=== PATIENT | female | born 1985 | race American Indian/Alaskan Native ===

== ENCOUNTER 2017-12-16 17:22 | Outpatient (CLI) | payer MEDICAID ==
[2017-12-16 17:56] VITALS: BP 109/81
[2017-12-16] MEDS ORDERED: LACTATED RINGERS 500 ML IV ONE (18:00)
[2017-12-16 19:29] LABS: Bacteria,Urine 1+ /HPF (Negative); Bilirubin,Urine NEG (Negative); Blood,Urine NEG (Negative); Color,Urine Yellow (Yellow); Hyaline Casts,Urine 8 /LPF; Mucus,Urine FEW /HPF; Urobilinogen,Urine < 2.0 mg/dL (<2.0)
== END 2017-12-16 19:54 | disposition home or self-care (01) ==
LOC: TRG 17:22
PROVIDERS: ATTEND Obstetrics & Gynecology
DX: O47.03 False labor before 37 completed weeks of gestation, third trimester (principal); Z3A.33 33 weeks gestation of pregnancy
CPT/HCPCS: 59025; 81001

== ENCOUNTER 2018-01-28 11:30 | Outpatient (CLI) | payer MEDICAID ==
[2018-01-28 13:59] VITALS: BP 107/68
--- NOTE | 2018-01-28 16:13 | Ultrasound Report ---
LIMITED OB ULTRASOUND: well-being, MATTHEW. Gestation: [place] MATTHEW = 19.2 cm Heart Rate: 25 BPM Estimated gestational age is 39 weeks 4 days. BIOPHYSICAL PROFILE: 2 - breathing movements 2 - movements 2 - posture and tone 2 - Qualitative amniotic fluid volume 8 - TOTAL SCORE OF POSSIBLE 8 Heart Rate (bpm) 125
== END 2018-01-28 14:36 | disposition home or self-care (01) ==
LOC: TRG 11:30
PROVIDERS: ATTEND Obstetrics & Gynecology
DX: O47.1 False labor at or after 37 completed weeks of gestation (principal); Z3A.39 39 weeks gestation of pregnancy
CPT/HCPCS: 59025; 76815; 76819

== ENCOUNTER 2018-02-04 12:03 | Inpatient (IN) | payer MEDICAID ==
[~2018-02-04 12:03] MED LIST: NACL 0.9% IR ONE; WATER FOR IRRIG STERILE IR ONE
[2018-02-04] MEDS ORDERED: BRETHINE SUB-Q PRN (15:06)
[2018-02-04] MEDS ORDERED: BRETHINE IVP PRN (15:06)
[2018-02-04] MEDS ORDERED: PHENERGAN PO PRN ×2 (15:06→23:26)
[2018-02-04] MEDS ORDERED: NARCAN 0.4 MG/1 ML IV PRN ×2 (15:06→23:26)
[2018-02-04] MEDS ORDERED: MINERAL OIL PO PRN (15:06)
[2018-02-04] MEDS ORDERED: SUBLIMAZE IV PRN (15:06)
[2018-02-04] MEDS ORDERED: STADOL IV PRN (15:06)
[2018-02-04] MEDS ORDERED: ePHEDrine SULFATE IV PRN (15:06)
[2018-02-04] MEDS ORDERED: ZOFRAN IV PRN ×2 (15:06→23:26)
--- NOTE | 2018-02-04 15:13 | History and Physical Report ---
History of Present Illness Date of examination: 02/04/18 Date of admission: 02/04/18 14:43 Chief complaint: Induction of labor History of present illness: Pt is a 32yo BF EDC 01/31/18; EGA 40 4/7 weeks presents to L&D complaining of decreased movement. She had a NR-NST, and BPP was 6/8. She will therefore be admitted for induction of labor. She received care at [facility] since27 weeks and course has been unremarkable. records are available and GBS is Positive. Past History Past Medical History: hematologic disorders (Protein S Deficiency) Past Surgical History: no surgical history Family/Genetic History: none Social history: no significant social history - Obstetrical History Expected Date of Delivery: 01/31/18 Actual Gestation: 40 Week(s) 4 Day(s) : 5 Medications and Allergies Allergies Allergy/AdvReac Type Severity Reaction Status Date / Time No Known Allergies Allergy Verified 02/04/18 13:28 Home Medications Medication Instructions Recorded Confirmed Last Taken Type No Known Home Medications [No 12/16/17 02/04/18 Unknown History Reported Home Medications] Active Meds: Active Medications Butorphanol Tartrate (Stadol) 2 mg IV Q2H PRN PRN Reason: Pain , Severe (7-10) Dinoprostone (Cervidil) 10 mg VG ONCE ONE Stop: 02/04/18 15:07 Ephedrine Sulfate (Ephedrine Sulfate) 10 mg IV Q2M PRN PRN Reason: Hypotension Fentanyl (Sublimaze) 100 mcg IV Q2H PRN PRN Reason: Labor Pain Ampicillin Sodium (Ampicillin/Ns 1 Gm/50 Ml) 1 gm in 50 mls @ 100 mls/hr IV Q4HR GILDA; Protocol Ampicillin Sodium (Polycillin/Ns 2 Gm/100 Ml) 2 gm in 100 mls @ 100 mls/hr IV ONCE ONE; Protocol Stop: 02/04/18 16:05 Lactated Ringer's (Lactated Ringers) 1,000 mls @ 125 mls/hr IV DIRECT GILDA Lidocaine (Xylocaine 2%) 20 ml INFILTRATI ONCE ONE Stop: 02/04/18 15:07 Mineral Oil (Mineral Oil) 30 ml PO QHS PRN PRN Reason: Constipation Review of Systems All systems: negative - Vital Signs Vital signs: Vital Signs Pulse BP 90 117/70 02/04/18 12:31 02/04/18 12:31 Temp Pulse Resp BP Pulse Ox 99.0 F 90 20 117/70 02/04/18 13:32 02/04/18 13:32 02/04/18 13:32 02/04/18 12:31 - Physical Exam Breasts: Positive: deferred Cardiovascular: Regular rate Lungs: Positive: Clear to auscultation Abdomen: Positive: normal appearance Genitourinary (Female): Positive: normal external genitalia Uterus: Positive: enlarged Extremities: Positive: normal - Obstetrical FHR: category 1 Uterine Contraction Monitor Mode: External Cervical Dilatation: 1 Cervical Effacement Percentage: 20 station: -3 Uterine Contraction Pattern: Absent Results Result Diagrams: 02/04/18 15:11 All other labs normal. Assessment and Plan - Patient Problems (1) 40 weeks gestation of Onset Date: 02/04/18 Current Visit: Yes Status: Acute Plan to address problem: A: IUP @ 40 4/7 weeks BPP 6/8 History of demise History of Protein S Deficiency P: Admit to L&D for cervidil/pitocin induction of labor
--- NOTE | 2018-02-04 15:20 | Ultrasound Report ---
ULTRASOUND BIOPHYSICAL PROFILE: History: Nonreactive stress test Technique: Transabdominal ultrasound with Doppler interrogation. 2 - breathing movements 0 - movements 2 - posture and tone 2 - Qualitative amniotic fluid volume 6 - TOTAL SCORE OF POSSIBLE 8 Heart Rate (bpm) 132
--- NOTE | 2018-02-04 15:20 | Ultrasound Report ---
ULTRASOUND OB LIMITED History: MATTHEW Technique: Transabdominal ultrasound with Doppler interrogation. Gestation: Single Position: Cephalic Amniotic Fluid: Normal MATTHEW = 12.7 cm Heart Rate: 134 BPM
[2018-02-04] MEDS ORDERED: PITOCin/NS 20 UNIT/1000ML DRIP 20 UNITS/1,000 ML BAG IV SCH (16:00)
[2018-02-04] MEDS ORDERED: LACTATED RINGERS 1,000 ML IV SCH (16:00)
[2018-02-04] MEDS ORDERED: PITOCin/NS 30 UNIT/500ML 30 UNITS/500 ML BAG IV SCH (16:00)
[2018-02-04] MEDS ORDERED: CERVIDIL VG ONE (16:00)
[2018-02-04] MEDS ORDERED: XYLOCAINE 2% INFILTRATI ONE (16:00)
[2018-02-04] MEDS ORDERED: POLYCILLIN/NS 2 GM/100 ML 2 GM/100 ML BAG IV ONE (16:00)
[2018-02-04 16:03] LABS: Hematocrit 32.8 % (30.3-42.9); Hemoglobin 10.5 gm/dl (10.1-14.3); Mean Corpuscular HGB Conc 32 % (30-34); Mean Corpuscular Volume 81 fl (79-97); Platelet Count 301 K/mm3 (140-440); Red Blood Count 4.06 M/mm3 (3.65-5.03); Red Cell Distribution Width 17.3 % (13.2-15.2)
[2018-02-04 16:06] LABS: Mean Corpuscular Hemoglobin 26 pg (28-32)
[2018-02-04] MEDS ORDERED: AMPICILLIN/NS 1 GM/50 ML 1 GM/50 ML BAG IV SCH (19:08)
--- NOTE | 2018-02-04 23:04 | Event Note ---
Date: 02/04/18 FHR baseline 120-125 with minimal variability and occasional variable FHR decelerations with rapid return to baseline. Patient is having labor induced due to nonreactive NST, BPP 6/8, and decreased movement. Pt. has a history of demise with a previous . Cervix is unchanged; patient has been receiving low dose Pitocin but was unable to increase Pitocin as planned due to minimal variability. Position changes have been instituted, IV fluid bolus has been given, and oxygen has been applied per face mask but without change in variability. Pitocin turned off and improvement of variability noted (moderate variability after Pitocin turned off). Consulted with Dr. Hernandez regarding interventions taken and heart rate tracing. Dr. Hernandez is en route to see patient. Discussed options with patient. Patient states she would like to have a section.
[2018-02-04] MEDS ORDERED: PEPCID IV NR (23:15)
[2018-02-04] MEDS ORDERED: BICITRA ONE (23:15)
[2018-02-04] MEDS ORDERED: REGLAN ONE (23:15)
[2018-02-04] MEDS ORDERED: BICITRA PO ONE (23:15)
[2018-02-04] MEDS ORDERED: REGLAN IV NR (23:15)
[2018-02-04] MEDS ORDERED: PEPCID IV ONE (23:16)
[2018-02-04] MEDS ORDERED: PHENERGAN PR PRN (23:26)
--- NOTE | 2018-02-04 23:26 | Anesthesia Consultation ---
Anesthesia Consult and Med Hx Date of service: 02/04/18 - Airway Anesthetic Teeth Evaluation: Good ROM Head & Neck: Adequate Mental/Hyoid Distance: Adequate Intubation Access Assessment: Probably Good - Pulmonary Exam CTA: Yes - Cardiac Exam Cardiac Exam: RRR - Pre-Operative Health Status ASA Pre-Surgery Classification: ASA3 Proposed Anesthetic Plan: Epidural, Spinal - Pulmonary Hx Asthma: No COPD: No Hx Pneumonia: No - Cardiovascular System Hx Hypertension: No - Central Nervous System Hx Seizures: No Hx Psychiatric Problems: No - Endocrine Hx Renal Disease: No Hx End Stage Renal Disease: No Hx Hypothyroidism: No Hx Hyperthyroidism: No - Hematic Hx Anemia: No Hx Sickle Cell Disease: No - Other Systems Hx Alcohol Use: No Hx Obesity: Yes
--- NOTE | 2018-02-04 23:26 | Anesthesia Day of Surgery ---
Anesthesia Day of Surgery - Day of Surgery Patient Examined: Yes Patient H&P Reviewed: Yes Patient is NPO: Yes
[2018-02-04] MEDS ORDERED: SODIUM CHLORIDE FLUSH SYRINGE 10 ML IV NR (23:45)
[2018-02-04] MEDS ORDERED: fentaNYL-BUPIV 2 MCG/ML-0.125% 200 MCG/100 ML BAG EPIDURAL SCH (23:45)
[2018-02-05] MEDS ORDERED: ASTRAMORPH PF 10MG/10ML ONE (00:08)
[2018-02-05] MEDS ORDERED: NEO SYNEPHRINE/NS Syringe(OR USE) IV ONE (00:17)
--- NOTE | 2018-02-05 01:12 | Procedure Note ---
OB Delivery Note - Delivery Date of Delivery: 02/05/18 Surgeon: ARIANE BECKFORD Estimated blood loss: 1000cc - Section Preop diagnosis: nonreassuring FHR tracing Postop diagnosis: same section procedure: section, primary low transverse Disposition: PACU Complications: none Narrative: Please see delivery note. - Infant A at 1 minute: 8 at 5 minutes: 9 Infant Gender: Female (3770g (8lb 5 oz) @ 0027 am)
--- NOTE | 2018-02-05 01:18 | Operative Report ---
Operative Report Operative Report: Date of procedure: February 05, 2018 Preoperative diagnosis: 1) IUP at 40w5d 2) Intolerance to Labor 3) Morbid Obesity 4) H/o IUFD 5) Protein S Deficiency Postoperative diagnosis: Same Procedure: Primary low transverse section Surgeon: Harleen Hernandez M.D. Anesthesia: Spinal-Epidural Findings: 1) Viable female , Apgars 8 and 9, weight 3770 g, (8 lb 5 oz) in cephalic presentation 2) Normal-appearing uterus ovaries and tubes Estimated blood loss: 1000 mL IV fluids: 2000 mL Urine output: 30 mL, clear at the end of the procedure Drains: Allen to gravity Specimens: Placenta to pathology Complications: None. Counts correct x 3 Disposition: Stable to PACU Indication for procedure: Pt is a 32 year old [place] female at 40w5d with a h/o of two third trimester IUFDs who was admitted for induction of labor secondary to decreased movement and BPP 6/10. FHTs began to have repetitive variable decelerations remote from delivery. The decision was made to proceed with primary delivery. Operation in detail: After the risks, benefits, alternatives and complications were explained to the patient she gave informed consent for the procedure. She was subsequently taken to the operating room where spinal-epidural anesthesia was noted to be adequate. She was subsequently placed in the dorsal supine position with leftward tilt and prepped and draped in a normal sterile fashion. heart tones were noted to be in the 120s prior to incision. A timeout was performed. A Pfannenstiel skin incision was made with the knife and carried down to the layer of the fascia with the Bovie. The fascia was incised in the midline and the fascial incision was extended bilaterally with the Bovie. Attention was then turned to the superior aspect of the incision which was grasped with two Kochers, tented up, and dissected off the rectus muscles. Attention was then turned to the inferior aspect of the incision which was grasped with two Kochers , tented up and dissected off the rectus muscles. The rectus muscles were then in the midline. The peritoneum was then entered bluntly. The peritoneal incision was extended with good visualization of the bladder. The peritoneal incision was then stretched. An Yuniel self-retaining retractor was placed for visualization. The bladder blade was placed. The vesicouterine peritoneum was grasped with smooth pickups and incised with Metzenbaum scissors. Metzenbaum scissors were used to extend the incision bilaterally. The bladder flap was then created digitally and the bladder blade was replaced. A transverse incision was made in the lower uterine segment with a knife and extended bilaterally with the bandage scissors. Large vessels were noted in the lower uterine segment. The head was delivered without difficulty followed by shoulders and body. was bulb suctioned at delivery. The cord was clamped and cut and the was handed to NICU staff in attendance. Cord blood was collected. The placenta was then delivered manually. The uterus was then cleared of all clots and debris. The hysterotomy was then reapproximated with 0 Vicryl in a running locked fashion. A second layer of the same suture was used in imbricating fashion. The hysterotomy was inspected and hemostasis was noted. The Yuniel self-retaining retractor was removed. The gutters were irrigated and cleared of all clots and debris. The hysterotomy was again inspected and noted to be hemostatic. Surgicel was placed over the hysterotomy. Interceed was placed over the anterior surface of the uterus. The peritoneum was reapproximated with 2-0 Vicryl in a running fashion incorporating the rectus muscles. The fascia was reapproximated with 0 Vicryl in a running fashion. The subcutaneous tissue was reapproximated with 3-0 Vicryl in a running fashion. The skin was reapproximated with 4-0 Vicryl in a subcuticular fashion. The incision was then covered with steri strips and a pressure dressing. The procedure was then ended. The patient tolerated the procedure well and was taken to the PACU in stable condition. All instrument, lap, and needle counts were correct 3.
[2018-02-05] MEDS ORDERED: PHENERGAN PR PRN (02:08)
[2018-02-05] MEDS ORDERED: MYLICON PO PRN (02:08)
[2018-02-05] MEDS ORDERED: NARCAN 0.4 MG/1 ML IV PRN (02:08)
[2018-02-05] MEDS ORDERED: SODIUM CHLORIDE FLUSH SYRINGE 10 ML IV NR (02:08)
[2018-02-05] MEDS ORDERED: LANSINOH TP PRN (02:08)
[2018-02-05] MEDS ORDERED: MORPHINE IV PRN (02:08)
[2018-02-05] MEDS ORDERED: TUCKS PAD TP PRN (02:08)
[2018-02-05] MEDS ORDERED: ZOFRAN IV PRN (02:08)
[2018-02-05] MEDS ORDERED: PITOCin/NS 20 UNIT/1000ML DRIP 20 UNITS/1,000 ML BAG IV SCH (02:08)
[2018-02-05] MEDS: TORADOL IV PRN ×3 (03:23→14:36)
[2018-02-05] MEDS: D5LR 1,000 ML IV SCH ×2 (03:26→09:11)
[2018-02-05] MEDS: FEOSOL PO SCH (09:12)
[2018-02-05] MEDS: ANCEF/NS 1 GM/50 ML 1 GM/50 ML BAG IV SCH ×2 (09:46→18:50)
[2018-02-05 13:30] LABS: Hematocrit 29.1 % (30.3-42.9); Hemoglobin 9.1 gm/dl (10.1-14.3)
[2018-02-05] MEDS: PERCOCET 5/325 PO PRN (18:59)
[2018-02-05] MEDS ORDERED: MILK OF MAGNESIA PO PRN (22:00)
[2018-02-06] MEDS: PERCOCET 5/325 PO PRN ×4 (01:24→19:51)
[2018-02-06] MEDS: MOTRIN PO PRN ×2 (02:11→23:05)
[2018-02-06] MEDS ORDERED: BOOSTRIX IM ONE (06:00)
[2018-02-06] MEDS ORDERED: M-M-R II VACCINE SUB-Q ONE (10:00)
[2018-02-06] MEDS: FEOSOL PO SCH (11:36)
--- NOTE | 2018-02-06 22:52 | Progress Note ---
Assessment and Plan A: /postop day 1. P: Encouraged ambulation. Continue current management plan. Subjective - Subjective Date of service: 02/06/18 Principal diagnosis: /postop day 1 S/P LTCS Interval history: /postop day 1 S/P LTCS. Doing well. Voiding without difficulty. Ambulating well. Tolerating a regular diet without nausea or vomiting. Reports small amount of lochia. Patient denies headache, visual disturbance, cough, shortness of breath, chest pain, abdominal pain, leg pain, heavy vaginal bleeding, symptoms of depression, or any other problems. Patient reports: appetite normal, voiding normally, pain well controlled, ambulating normally : doing well Objective - Vital Signs Latest vital signs: Vital Signs Temp Pulse Resp BP Pulse Ox 02/06/18 19:51 18 02/06/18 16:25 98.4 F 86 18 115/72 98 02/06/18 11:36 20 02/06/18 08:20 97.7 F 81 20 113/72 98 02/06/18 04:47 98.3 F 90 20 108/69 98 02/06/18 00:19 98.4 F 74 20 112/72 Intake and Output 02/06/18 02/06/18 02/06/18 07:59 15:59 23:59 Intake Total 150 720 240 Output Total 600 Balance -450 720 240 Intake: Oral 150 240 Intake, Free Water 480 240 Output: Urine 600 Void 600 Other: Total, Intake Amount 150 120 Total, Output Amount 600 # Voids Indwelling Catheter 1 0 Void 1 1 - Exam Cardiovascular: Present: Regular rate, Normal S1, Normal S2 Lungs: Present: Clear to auscultation Abdomen: Present: normal appearance, soft, normal bowel sounds. Absent: distention, tenderness, guarding, rigidity Uterus: Present: normal, firm, fundal height below umbilicus. Absent: bogginess , tenderness Extremities: Present: normal. Absent: tenderness, edema Incision: Present: normal, dry, intact, other (small amount of dried drainage on dressing), dressed
[2018-02-07] MEDS: PERCOCET 5/325 PO PRN ×2 (05:11→21:58)
[2018-02-07] MEDS: MOTRIN PO PRN ×2 (09:43→21:58)
[2018-02-07] MEDS: FEOSOL PO SCH (09:43)
--- NOTE | 2018-02-07 11:27 | Progress Note ---
Assessment and Plan - Patient Problems (1) 40 weeks gestation of Onset Date: 02/04/18 Current Visit: Yes Status: Resolved (2) Status post Onset Date: 02/07/18 Current Visit: Yes Status: Acute Plan to address problem: A: S/P C Section - POD #2 Doing well Asymptomatic anemia - stable P: May go home tomorrow. Subjective - Subjective Date of service: 02/07/18 Principal diagnosis: s/p C Section - POD #2 Interval history: Pt is feeling well without complaints. Tolerating a reg diet without nausea or vomiting, ambulating and voiding without difficulty. Patient reports: appetite normal, voiding normally, pain well controlled, flatus , ambulating normally, no dizzy ambulation : doing well, nursing well Objective - Vital Signs Latest vital signs: Vital Signs Temp Pulse Resp BP Pulse Ox 02/07/18 08:43 98.6 F 74 22 103/63 97 02/07/18 05:11 18 02/07/18 00:00 98.6 F 78 16 102/67 02/06/18 23:05 18 02/06/18 19:51 18 02/06/18 16:25 98.4 F 86 18 115/72 98 02/06/18 11:36 20 Intake and Output 02/06/18 02/07/18 02/07/18 22:59 06:59 14:59 Intake Total 240 300 720 Balance 240 300 720 Intake: Oral 120 Intake, Free Water 240 300 600 Other: Total, Intake Amount 120 Voiding Method Toilet # Voids 2 Void 1 - Exam Breasts: Present: deferred Cardiovascular: Present: Regular rate Lungs: Present: Clear to auscultation Abdomen: Present: normal appearance, soft Uterus: Present: normal, firm, fundal height below umbilicus Extremities: Present: normal Incision: Present: normal, dry, intact - Labs Labs: Laboratory Tests 02/04/18 02/04/18 02/04/18 15:11 15:11 15:11 WBC 9.3 RBC 4.06 Hgb 10.5 Hct 32.8 MCV 81 MCH 26 L MCHC 32 RDW 17.3 H Plt Count 301 RPR Nonreactive Blood Type O POSITIVE Antibody Screen Negative 02/05/18 13:17 WBC RBC Hgb 9.1 L Hct 29.1 L MCV MCH MCHC RDW Plt Count RPR Blood Type Antibody Screen
--- NOTE | 2018-02-07 12:43 | Discharge Summary ---
Providers - Providers Date of Admission: 02/04/18 14:43 Date of discharge: 02/07/18 Attending physician: DOROTEO CASTILLO 02/05/18 02:08 Consult to Shank Piece Tacker [CONS] Routine Reason For Exam: Primary care physician: DOROTEO CASTILLO Hospitalization Reason for admission: observation, induction of labor, IUP at term Delivery: Procedure: section, primary low transverse Episiotomy: none Incision: normal, dry, intact Other procedures: none complications: none Discharge diagnosis: IUP at term delivered Cable baby: male Hospital course: Pt is a 32yo BF EDC 01/31/18; EGA 40 4/7 weeks who presented to L&D complaining of decreased movement. She had a NR-NST, and BPP was 6/8. She began induction of labor, but developed a non-reassuring . tracing requiring delivery by C Section. By POD #2 she was tolerating a reg diet without nausea or vomiting, ambulating and voiding without difficulty. She was therefore discharged to home on POD #3 in stable condition. Condition at discharge: Good Disposition: DC-01 TO HOME OR SELFCARE - Discharge Diagnoses (1) 40 weeks gestation of Status: Resolved (2) Status post Status: Resolved Plan - Discharge Medications Prescriptions: Ferrous Sulfate [Feosol 325 MG tab] 325 mg PO BID #60 tablet Ibuprofen [Motrin 800 MG tab] 800 mg PO Q6H PRN #30 tablet PRN Reason: Pain, Mild (1-3) oxyCODONE /ACETAMINOPHEN [Percocet 5/325 mg] 1 tab PO Q6HR PRN #30 tablet PRN Reason: Pain, Moderate (4-6) - Provider Discharge Summary Activity: routine, no sex for 6 weeks, no heavy lifting 4 weeks, no strenuous exercise Diet: routine Instructions: routine Additional instructions: [] Smoking cessation referral if applicable(refer to patient education folder for contact #) [] Refer to [facility] Booklet Call your doctor immediately for: * Fever > 100.5 * Heavy vaginal bleeding ( >1 pad per hour) * Severe persistent headache * Shortness of breath * Reddened, hot, painful area to leg or breast * Drainage or odor from incision. * Keep incision clean and dry at all times and follow doctor's instructions regarding bathing/showering - Follow up plan Follow up: DOROTEO CASTILLO MD [Primary Care Provider] - 14 Days ARIANE HIDALGO CNM [Advanced Practice Nurse] - 14 Days Forms: [facility] Discharge Summary
[2018-02-08 08:39] VITALS: BP 118/74
== END 2018-02-08 09:45 | disposition home or self-care (01) | DRG 765 ==
LOC: TRG 12:03 → LD 14:43 → OB 02-05 03:17
PROVIDERS: ADMIT Obstetrics & Gynecology; ATTEND Obstetrics & Gynecology
PROC: 10D00Z1 Extraction of Products of Conception, Low, Open Approach (ICD-10-PCS; principal; 2018-02-05)
PROC: 3E0234Z Introduction of Serum, Toxoid and Vaccine into Muscle, Percutaneous Approach (ICD-10-PCS; 2018-02-06)
DX: O99.12 Other diseases of the blood and blood-forming organs and certain disorders involving the immune mechanism complicating childbirth (principal); D68.59 Other primary thrombophilia; Z68.41 Body mass index [BMI] 40.0-44.9, adult; O76 Abnormality in fetal heart rate and rhythm complicating labor and delivery; O99.214 Obesity complicating childbirth; O99.824 Streptococcus B carrier state complicating childbirth; E66.01 Morbid (severe) obesity due to excess calories; Z71.3 Dietary counseling and surveillance; Z3A.40 40 weeks gestation of pregnancy; Z37.0 Single live birth; Z23 Encounter for immunization; O90.81 Anemia of the puerperium; D64.9 Anemia, unspecified
CPT/HCPCS: 36415; 59025; 76815; 76819; 85014; 85018; 85027; 86592; 86850; 86900; 86901; 88305; 88307; 90471; 90715; 99211; G0463; J0290; J0595; J0690; J1885; J2274; J2370; J2405; J2590; J2765; J3010; J7120; J7121; Q0169